=== PATIENT | male | born 1995 | race African-American/Black ===

== ENCOUNTER 2018-03-15 00:59 | Emergency (ER) | payer MEDICARE, OTHER ==
[~2018-03-15] VITALS: Ht 180.3 cm; Wt 158.8 kg
--- NOTE | 2018-03-15 01:12 | NUR ---
Benjamin Noland called at 0101. Pt brought in by rescue 90 with c/o altered mental status. Per EMS, pt received total of 10 mg Versed IM on the field. Pt also accompanied by [employer]. Pt is uncooperative, combative and refusing to answer questions at this time. Pt placed on 4 pt restraints per MD order.
[2018-03-15] MEDS ORDERED: diphenhydrAMINE 50 MG/1 ML VIAL ONE (02:08)
[2018-03-15] MEDS ORDERED: HALOPERIDOL LACTATE 5 MG/1 ML VIAL ONE (02:09)
[2018-03-15] MEDS ORDERED: HALOPERIDOL LACTATE 5 MG/1 ML VIAL IM ONE (02:15)
[2018-03-15] MEDS ORDERED: diphenhydrAMINE 50 MG/1 ML VIAL IM ONE (02:15)
--- NOTE | 2018-03-15 02:20 | NUR ---
ARAVIND placed pt on 5150 hold. 1:1 sitter at bedside. Suicide precautions implemented.
--- NOTE | 2018-03-15 03:22 | NUR ---
Pt able to provide urine sample with urinal.
[2018-03-15 03:39] LABS: BASOPHILS % (AUTO) 0.5 % (0.0-2.0); EOSINOPHILS % (AUTO) 0.3 % (0.0-7.0); HEMATOCRIT 36.8 % (36.7-47.1); HEMOGLOBIN 13.1 g/dL (12.5-16.3); LYMPHOCYTES # (AUTO) 1.1 K/uL (20.0-40.0); LYMPHOCYTES % (AUTO) 16.5 % (20.5-51.5); MEAN CORPUSCULAR HGB CONC 36 g/dL (32.5-36.3); MEAN CORPUSCULAR VOLUME 95.6 fL (73.0-96.2); MONOCYTES # (AUTO) 0.6 K/uL (2.0-10.0); MONOCYTES % (AUTO) 9.1 % (0.0-11.0); NEUTROPHILS # (AUTO) 4.9 K/uL (1.8-8.9); NEUTROPHILS % (AUTO) 73.6 % (38.5-71.5); PLATELET COUNT (AUTO) 224 K/uL (152-348); RED BLOOD CELL COUNT(AUTO) 3.85 MIL/uL (4.06-5.63); WHITE BLOOD COUNT (AUTO) 6.7 K/uL (3.6-10.2)
[2018-03-15 03:40] LABS: *BILIRUBIN,URIN NEGATIVE (NEGATIVE); *BLOOD, URINE Trace-lysed (NEGATIVE); *COLOR,URINE YELLOW (YELLOW); *KETONES,URINE NEGATIVE (NEGATIVE); *UROBILINOGEN,URINE 0.2 E.U./dl (NORMAL); LEUKOCYTE ESTERASE ,URINE NEGATIVE (NEGATIVE); NITRITE, URINE NEGATIVE (NEGATIVE); PH,URINE 5.5 (5.0-8.0); UGLUCOSE NEGATIVE (NEGATIVE)
[2018-03-15 03:51] LABS: *CLARITY,URINE HAZY (CLEAR)
[2018-03-15 03:52] LABS: BACTERIA,URINE FEW /HPF (NONE SEEN); SQUAMOUS EPITHELIAL CELL,UR MODERATE /HPF (NONE SEEN); WBC,URINE 0-3 /HPF (0-3)
[2018-03-15 03:53] LABS: ALANINE AMINOTRANSFERASE 42 U/L (16-63); ALKALINE PHOSPHATASE 73 U/L (50-136); ASPARTATE AMINOTRANSFERASE 24 U/L (15-37); BILIRUBIN,DIRECT 0.2 mg/dL (0.0-0.2); BILIRUBIN,TOTAL 0.8 mg/dL (0.2-1.0); CARBON DIOXIDE 26 mmol/L (21-32); CHLORIDE 102 mmol/L (98-107); CREATINE KINASE, TOTAL 202 U/L (39-308); GLUCOSE 93 mg/dL (74-106); POTASSIUM 3.7 mmol/L (3.5-5.1); TOTAL PROTEIN, SERUM 7.4 g/dL (6.4-8.2); UREA NITROGEN, BLOOD 12 mg/dL (7-18)
[2018-03-15 04:06] LABS: *AMPHETAMINE, URINE NEGATIVE (NEGATIVE); *BARBITURATE, URINE NEGATIVE (NEGATIVE); *CANNABINOID, URINE POSITIVE (NEGATIVE); *COCCAINE, URINE NEGATIVE (NEGATIVE); *OPIATE, URINE NEGATIVE (NEGATIVE); *PHENCYCLIDINE SCREEN,URINE NEGATIVE (NEGATIVE)
[2018-03-15 04:13] LABS: ETHANOL < 3 MG/DL (0-0)
[2018-03-15 04:16] LABS: ACETAMINOPHEN < 2.0 ug/mL (10-30)
--- NOTE | 2018-03-15 05:10 | NUR ---
Pt out of 4-point restraints at this time. Pt is cooperative and sleeping in bed. Safe environment implemented.
--- NOTE | 2018-03-15 07:00 | NUR ---
Handsoff report given to BRENDAN Sánchez
--- NOTE | 2018-03-15 08:24 | NUR ---
pt still drowsy, arousable, bf tray offered but pt refused at this point.
--- NOTE | 2018-03-15 09:09 | NUR ---
pt aake now. [facility] trayat bed side pt eating with good apetite. called ramila alex for psych eval.
--- NOTE | 2018-03-15 09:50 | NUR ---
ramila alex at beside to evaluate the pt.
--- NOTE | 2018-03-15 11:59 | NUR ---
lunch tray provided for pt. pt eating with good apetite. pt says that he wants to go home, but gait not steady yeat. pt still drowsy.
[2018-03-15] MEDS ORDERED: HYDROMORPHONE 1 MG/1 ML DISP.SYRIN ONE (14:50)
--- NOTE | 2018-03-15 14:57 | NUR ---
pt awake,a/o x 4. pt walks in steady gait. pt says wants to go home. Addendum: 03/15/18 at 1543 by ROBERT Patient discharged to home in stable conditon. Written and verbal after care instructions given. Patient verbalizes understanding of instructions.pt walks in steady gait. pt walked to bathroom with no difficulty. Addendum: 03/15/18 at 1546 by ROBERT pt denies having suicidal ideation.
[2018-03-15 15:44] VITALS: BP 129/79
== END 2018-03-15 15:04 | disposition home or self-care (01) ==
LOC: EDSEX 01:03 → ER 01:03 → EDBD 01:03 → ER 15:04
DX: R45.1 Restlessness and agitation (principal)
CPT/HCPCS: 36415; 80048; 80076; 80307; 81001; 82550; 85025; 96372 ×2; 99284; G0480 ×2; G0481; J1200; J1630; A4663; J1170

== ENCOUNTER 2018-07-17 01:03 | Emergency (ER) | payer MEDICARE, OTHER ==
[~2018-07-17] VITALS: Ht 175.3 cm; Wt 149.7 kg
--- NOTE | 2018-07-17 01:45 | NUR ---
PATIENT UPON ARRIVAL ANXIOUS, STATING "MONSTER ARE AFTER ME."PATIENT ALSO HITTING PHILLIPS AND DOORS RESPONDING TO INTERNAL. PATIENT ARRIVED WITH [facility] STAFF MEMBER ZORA LATIF [facility] WHO FOLLOWED HER HERE. ZORA LATIF STATES PATIENT CALLED HER CRISIS HOTLINE AND STATED PATIENT WAS COMING TO [facility] TO CHECK HERSELF IN. PLACED IN ROOM 3. SAFETY MEASURE PROVIDED
[2018-07-17] MEDS ORDERED: OLANZAPINE 5 MG TABLET PO ONE (02:00)
[2018-07-17] MEDS ORDERED: OLANZAPINE 5 MG TABLET ONE (02:05)
[2018-07-17 02:20] LABS: BASOPHILS % (AUTO) 0.2 % (0.0-2.0); EOSINOPHILS % (AUTO) 0.4 % (0.0-7.0); HEMATOCRIT 38.5 % (36.7-47.1); HEMOGLOBIN 13.5 g/dL (12.5-16.3); LYMPHOCYTES # (AUTO) 1.5 K/uL (20.0-40.0); LYMPHOCYTES % (AUTO) 15.9 % (20.5-51.5); MEAN CORPUSCULAR HEMOGLOBIN 33.4 uug (23.8-33.4); MEAN CORPUSCULAR HGB CONC 35 g/dL (32.5-36.3); MEAN CORPUSCULAR VOLUME 95.4 fL (73.0-96.2); MONOCYTES # (AUTO) 0.5 K/uL (2.0-10.0); MONOCYTES % (AUTO) 5.7 % (0.0-11.0); NEUTROPHILS # (AUTO) 7.5 K/uL (1.8-8.9); NEUTROPHILS % (AUTO) 77.8 % (38.5-71.5); PLATELET COUNT (AUTO) 247 K/uL (152-348); RED BLOOD CELL COUNT(AUTO) 4.04 MIL/uL (4.06-5.63); WHITE BLOOD COUNT (AUTO) 9.6 K/uL (3.6-10.2)
[2018-07-17 02:33] LABS: ALANINE AMINOTRANSFERASE 49 U/L (16-63); ALKALINE PHOSPHATASE 86 U/L (50-136); ASPARTATE AMINOTRANSFERASE 20 U/L (15-37); BILIRUBIN,DIRECT 0.2 mg/dL (0.0-0.2); BILIRUBIN,TOTAL 0.6 mg/dL (0.2-1.0); CARBON DIOXIDE 26 mmol/L (21-32); CHLORIDE 106 mmol/L (98-107); CREATININE 1.1 mg/dL (0.6-1.3); POTASSIUM 3.5 mmol/L (3.5-5.1); TOTAL PROTEIN, SERUM 7.6 g/dL (6.4-8.2); UREA NITROGEN, BLOOD 13 mg/dL (7-18)
[2018-07-17 02:38] LABS: ACETAMINOPHEN < 2.0 ug/mL (10-30)
[2018-07-17] MEDS ORDERED: ACETAMINOPHEN 325 MG TABLET PO ONE (02:45)
[2018-07-17] MEDS ORDERED: ACETAMINOPHEN 325 MG TABLET ONE (02:49)
[2018-07-17 02:53] LABS: ETHANOL < 3 MG/DL (0-0)
[2018-07-17 02:55] LABS: GLUCOSE 94 mg/dL (74-106)
--- NOTE | 2018-07-17 02:56 | NUR ---
MEDICALLY CLEARED BY DR MAZARIEGOS
--- NOTE | 2018-07-17 02:59 | NUR ---
CALLED DEANGELO MCKAY RN FROM [facility] TO EVAL PATIENT
--- NOTE | 2018-07-17 03:50 | NUR ---
DEANGELO FROM [facility] HERE TO EVAL PATIENT.
[2018-07-17 04:13] LABS: *BILIRUBIN,URIN NEGATIVE (NEGATIVE); *BLOOD, URINE NEGATIVE (NEGATIVE); *CLARITY,URINE CLEAR (CLEAR); *COLOR,URINE YELLOW (YELLOW); *KETONES,URINE NEGATIVE (NEGATIVE); *UROBILINOGEN,URINE 0.2 E.U./dl (NORMAL); LEUKOCYTE ESTERASE ,URINE NEGATIVE (NEGATIVE); NITRITE, URINE NEGATIVE (NEGATIVE); PH,URINE 5.5 (5.0-8.0); UGLUCOSE NEGATIVE (NEGATIVE)
[2018-07-17 04:26] LABS: *AMPHETAMINE, URINE NEGATIVE (NEGATIVE); *BARBITURATE, URINE NEGATIVE (NEGATIVE); *CANNABINOID, URINE POSITIVE (NEGATIVE); *COCCAINE, URINE NEGATIVE (NEGATIVE); *OPIATE, URINE NEGATIVE (NEGATIVE); *PHENCYCLIDINE SCREEN,URINE NEGATIVE (NEGATIVE)
--- NOTE | 2018-07-17 04:37 | NUR ---
DEANGELO FROM [facility] SPOKE WITH MAIRA TORRES FROM [facility] [phone]. FAXED FACESHEET AND LABS REQUESTED . WILL BE ABLE TO ACCEPT PATIENT AT 0800 TODAY. MAIRA WILL CALL BACK TO CONFIRM ACCEPTANCE TO [facility]
--- NOTE | 2018-07-17 05:13 | NUR ---
Valencia from intake returned call, call back number to give report is [phone]. Admitting MD = Dr. Son. Report to be given at 0800.
--- NOTE | 2018-07-17 05:32 | NUR ---
CALLED MARY. HORTICULTURAL AGENT TIME IS 8945. TRIP # [id number]
--- NOTE | 2018-07-17 07:09 | NUR ---
RECEIVED SHIFT REPORT FROM JUAN Clark RN.
--- NOTE | 2018-07-17 07:10 | NUR ---
PT SLEEPING IN BED, NAD.
--- NOTE | 2018-07-17 07:43 | NUR ---
HOSPITAL SECURITY AT BEDSIDE FOR 1:1 OBSERVATION FOR SAFETY PRECAUTION. PT STILL SLEEPING IN BED, NAD.
--- NOTE | 2018-07-17 08:14 | NUR ---
PT REFUSES VS CHECK. PT STILL RESTING IN BED, NAD.
--- NOTE | 2018-07-17 08:43 | NUR ---
CALLED [facility], SPOKE W/ JUWAN THE NURSING WILDLIFE BIOSTATION RESEARCH ECOLOGIST. JUWAN INFORMED ME THAT THEY WERE CURRENTLY FULL AND TO CALL BACK AROUND 1100. [facility] CANCE[facility] FOR TRANSPORTATION.
--- NOTE | 2018-07-17 10:00 | NUR ---
RECEIVED CALL-BACK FROM DEANGELO, DEGREASER, AND INFORMED BY HER TO TRANSFER PT TO [facility] AT 1100 PER [facility]'S INTAKE MANAGEMENT.
--- NOTE | 2018-07-17 10:03 | NUR ---
CALLED [facility] AND SPOKE W/ LUISITO. TRIP #[id number]. ETA [phone].
--- NOTE | 2018-07-17 11:21 | NUR ---
PT WILL BE TRANSFERRED TO [facility], [address].
--- NOTE | 2018-07-17 11:23 | NUR ---
Patient Tranfers to outside Facility Physician: DR. LAL Location: [facility].
--- NOTE | 2018-07-17 11:44 | NUR ---
NURSE TO NURSE REPORT GIVEN TO DEVORAH CARDONA AT [facility].
== END 2018-07-17 11:49 | disposition short-term general hospital (02) ==
LOC: ER 01:09
DX: F29 Unspecified psychosis not due to a substance or known physiological condition (principal)
CPT/HCPCS: 36415; 80048; 80076; 80307; 81001; 85025; 99285; G0480 ×2; G0481; A4663